=== PATIENT | male | born 1975 | race Caucasian/White ===

== ENCOUNTER → 2017-04-11 | Outpatient (CLI) | payer OTHER ==
[2017-04-11 09:28] LABS: BASO % 1 % (0-3); EOS % 2 % (0-3); HEMATOCRIT 43.6 % (39.0-53.0); LYMPH # 1.5 x10^3/uL (1.0-4.8); LYMPH % 28 % (24-48); MEAN CORPUSCULAR HEMOGLOBIN 31 pg (25-35); MEAN CORPUSCULAR HGB CONC 35 g/dL (31-37); MEAN CORPUSCULAR VOLUME 89 fL (79-100); MONO % 11 % (0-9); NEUT % 58 % (31-73); PLATELET COUNT 226 x10^3/uL (140-400); RED CELL DISTRIBUTION WIDTH 13.6 % (11.5-14.5); WHITE BLOOD COUNT 5.3 x10^3/uL (4.0-11.0)
[2017-04-11 09:29] LABS: BILIRUBIN,URINE NEGATIVE (NEG); GLUCOSE,URINE NEGATIVE (NEG); NITRITE,URINE NEGATIVE (NEG); PROTEIN,URINE NEGATIVE (NEG-TRACE)
[2017-04-11 09:46] LABS: ALBUMIN 3.6 g/dL (3.4-5.0); ALBUMIN/GLOBULIN RATIO 1.1 (1.0-1.7); CALCIUM 8.7 mg/dL (8.5-10.1); CREATININE 0.9 mg/dL (0.7-1.3); GFR 92.5; POTASSIUM 3.7 mmol/L (3.5-5.1); TOTAL BILIRUBIN 0.7 mg/dL (0.2-1.0); TOTAL PROTEIN 6.8 g/dL (6.4-8.2)
[2017-04-11 09:48] LABS: BACTERIA,URINE 0 /HPF (0-FEW); RBC,URINE 0 /HPF (0-2); WBC,URINE 0 /HPF (0-4)
[2017-04-11 09:50] LABS: CHOLESTEROL/HDL RATIO 5.6
== END | disposition home or self-care (01) ==
LOC: LAB 08:24
PROVIDERS: ATTEND Family Medicine
DX: Z00.00 Encounter for general adult medical examination without abnormal findings (principal)
CPT/HCPCS: 36415; 80053; 80061; 81001; 83036; 84443; 85025

== ENCOUNTER → 2018-04-18 | Outpatient (CLI) | payer OTHER ==
[2018-04-18 11:16] LABS: BASO % 1 % (0-3); EOS # 0.1 x10^3/uL (0.0-0.7); EOS % 2 % (0-3); HEMATOCRIT 45.5 % (39.0-53.0); HEMOGLOBIN 15.8 g/dL (13.0-17.5); LYMPH # 1.8 x10^3/uL (1.0-4.8); LYMPH % 31 % (24-48); MEAN CORPUSCULAR HEMOGLOBIN 31 pg (25-35); MEAN CORPUSCULAR HGB CONC 35 g/dL (31-37); MEAN CORPUSCULAR VOLUME 89 fL (79-100); MONO # 0.7 x10^3/uL (0.0-1.1); MONO % 12 % (0-9); NEUT # 3.1 x10^3uL (1.8-7.7); NEUT % 55 % (31-73); PLATELET COUNT 264 x10^3/uL (140-400); WHITE BLOOD COUNT 5.7 x10^3/uL (4.0-11.0)
[2018-04-18 11:26] LABS: ALBUMIN 3.7 g/dL (3.4-5.0); CALCIUM 8.8 mg/dL (8.5-10.1); CHOLESTEROL/HDL RATIO 5.5; GFR 81.6; POTASSIUM 3.3 mmol/L (3.5-5.1); TOTAL BILIRUBIN 0.7 mg/dL (0.2-1.0); TOTAL PROTEIN 7.4 g/dL (6.4-8.2)
[2018-04-18 19:16] LABS: HEMOGLOBIN A1C 5.1 % (4.8-5.6)
== END | disposition home or self-care (01) ==
LOC: LAB 10:41
PROVIDERS: ATTEND Family Medicine
DX: Z00.00 Encounter for general adult medical examination without abnormal findings (principal)
CPT/HCPCS: 36415; 80053; 80061; 83036; 84443; 85025

== ENCOUNTER → 2018-06-09 | Outpatient (CLI) | payer OTHER ==
[2018-06-09 13:57] LABS: ALBUMIN 3.8 g/dL (3.4-5.0); ALBUMIN/GLOBULIN RATIO 1.1 (1.0-1.7); CREATININE 0.9 mg/dL (0.7-1.3); DIRECT BILIRUBIN 0.1 mg/dL (0.0-0.2); GFR 91.7; POTASSIUM 3.4 mmol/L (3.5-5.1); TOTAL BILIRUBIN 0.6 mg/dL (0.2-1.0); TOTAL PROTEIN 7.4 g/dL (6.4-8.2)
[2018-06-09 14:08] LABS: THYROID STIM HORMONE (TSH) 5.843 uIU/mL (0.358-3.74)
== END | disposition home or self-care (01) ==
LOC: LAB 11:00
PROVIDERS: ATTEND Family Medicine
DX: B35.1 Tinea unguium (principal); E87.6 Hypokalemia; R79.89 Other specified abnormal findings of blood chemistry
CPT/HCPCS: 36415; 80053; 80076; 84436; 84443; 84481

== ENCOUNTER → 2018-06-09 | Outpatient (CLI) | payer OTHER ==
[~2018-06-09] MED LIST: IOHEXOL 240 MG/ML 50ML VIAL. PO ONE; IOHEXOL 300 MG/ML 100ML VIAL. IV ONE; LAMISIL PO; LOSA1TAB22 PO; OXYC1TAB15 PO
--- NOTE | 2018-06-09 16:20 | RAD ---
CT ABD PELV W/ORAL IV CONTRAST Indication: INJ 75ML OMNI 300 NO PREV VENTRAL HERNIA Exposure: One or more of the following individualized dose reduction techniques were utilized for this examination: 1. Automated exposure control 2. Adjustment of the mA and/or kV according to patient size 3. Use of iterative reconstruction technique. Comparison: None are available. Contrast: Intravenous contrast was given. Oral contrast was given. FINDINGS: Lower thorax: Small left lower lobe subpleural nodule measures 4 mm. Another nodule in the lateral anterior lung base, image 13, measures 5 mm. There are additional reticulonodular markings in both lung bases. There appears to be some scarring in the right lung base with a surgical clip. Liver: Unremarkable Spleen: Unremarkable Pancreas: Unremarkable Adrenals: No evidence of mass. Kidneys: No obvious mass. Urinary tracts: No hydronephrosis. Gallbladder: Several small calculi Lymph nodes: Small mesenteric lymph nodes are identified, measuring up to 9 mm in short axis. Vessels: Aorta is nonaneurysmal. GI tract: Moderate retained stool in the colon. Fecalizaiton of content in the distal ileum. Mild dilatation of small bowel loops.Appendix is normal. Reproductive organs:No evidence of mass. Urinary bladder: Unremarkable. Peritoneum: No evidence of pneumoperitoneum. No free fluid. Abdominal wall: Small fat-containing anterior abdominal wall hernia. No bowel herniation. Spine: Transitional anatomy at the lumbosacral junction. Bones: No destructive process identified. External Soft Tissue: No acute findings. IMPRESSION: 1. Small pulmonary nodules, measuring up to 5 mm in diameter. As per Fleischner guidelines, no routine follow-up is necessary if low risk. If high risk, consider CT chest follow-up in 12 months. 2. Moderate retained stool in the colon. There is mild diffuse small bowel distention, with fecalization of distal small bowel contents. Findings could indicate mild small bowel obstruction versus slow bowel transit. 3. Mild mesenteric lymph node enlargement, nonspecific but could be reactive. 4. Cholelithiasis. 5. Irregular markings in both lung bases with a reticulonodular appearance, indeterminate, could be due to fibrosis or scarring. 6. I called Dr. Calvo's office at 4:10 PM on 06/09/2018 to communicate these findings. The phone forwarded to the answering service, who has paged the on-call physician with my callback number to communicate these findings. Electronically signed by: Ramos Hurd MD (06/09/2018 4:16 PM) [id number]
== END | disposition home or self-care (01) ==
LOC: CT 10:56
PROVIDERS: ATTEND Surgery
DX: K43.9 Ventral hernia without obstruction or gangrene (principal); K80.20 Calculus of gallbladder without cholecystitis without obstruction; R59.0 Localized enlarged lymph nodes; R91.8 Other nonspecific abnormal finding of lung field; I10 Essential (primary) hypertension
CPT/HCPCS: 74177; Q9966; Q9967

== ENCOUNTER 2018-07-05 05:56 | Observation (INO) | payer OTHER ==
[~2018-07-05] VITALS: Ht 188 cm; Wt 102.7 kg
[2018-07-05] VITALS (9 sets, daily range): BP systolic 111–123; BP diastolic 69–81
[~2018-07-05 05:56] MED LIST changes: -IOHEXOL 240 MG/ML 50ML VIAL. PO ONE; -IOHEXOL 300 MG/ML 100ML VIAL. IV ONE; -OXYC1TAB15 PO
[2018-07-05] MEDS: IV RINGERS,LACTATED 1000ML 1,000 ML IV SCH ×2 (06:35→09:52)
[2018-07-05] MEDS ORDERED: BUPIVAC MPF-EPI 0.5%-1:200000 30 ML VIAL. ONE (06:58)
[2018-07-05] MEDS ORDERED: BUPIVACAINE MPF 0.5% 30 ML VIAL. ONE (06:58)
[2018-07-05] MEDS ORDERED: PROCHLORPERAZINE 10 MG/2 ML VIAL. IV PRN (07:00)
[2018-07-05] MEDS ORDERED: ONDANSETRON PF 4 MG/2 ML VIAL. IV PRN ×2 (07:00→09:45)
[2018-07-05] MEDS ORDERED: fentaNYL PF VIAL 100 MCG/2 ML VIAL IV PRN ×2 (07:00)
[2018-07-05] MEDS ORDERED: LIDOCAINE 1% PF 2 ML VIAL. ID PRN (07:00)
[2018-07-05] MEDS ORDERED: MORPHINE SULFATE 4 MG/ML VIAL. IV PRN ×2 (07:00→09:45)
[2018-07-05] MEDS ORDERED: HYDROmorphone 2 MG/ML VIAL IV PRN (07:00)
[2018-07-05] MEDS ORDERED: ROCURONIUM 50 MG/5 ML VIAL. ONE (07:21)
[2018-07-05] MEDS ORDERED: fentaNYL PF VIAL 100 MCG/2 ML VIAL ONE (07:21)
[2018-07-05] MEDS ORDERED: MIDAZOLAM HCL/PF 2 MG/2 ML VIAL. ONE (07:22)
[2018-07-05] MEDS ORDERED: LIDOCAINE 2% PF 5 ML VIAL. ONE (07:22)
[2018-07-05] MEDS ORDERED: SEVOFLURANE > 120 MINUTES. IH ONE (07:22)
[2018-07-05] MEDS ORDERED: DEXAMETHASONE SOD PHOS 20 MG/5 ML VIAL. ONE (07:22)
[2018-07-05] MEDS ORDERED: ONDANSETRON PF 4 MG/2 ML VIAL. ONE (07:22)
[2018-07-05] MEDS ORDERED: PROPOFOL 20 ML IV ONE (07:22)
[2018-07-05] MEDS ORDERED: KETOROLAC 30 MG/ML INJ FOR OR. INJ ONE (07:39)
[2018-07-05] MEDS ORDERED: ePHEDrine PF IN SALINE 50 MG/5 ML DISP.SYRIN IV ONE (07:43)
--- NOTE | 2018-07-05 09:37 | PDOC4 ---
Operative Note Operative Note Operative Note: Preoperative Diagnosis: Ventral hernia Postoperative Diagnosis: Same Procedure: Ventral hernia repair with mesh Surgeon: Umesh Assistant Production Editor: Yisel PINO Anesthesia: Gen. EBL: 20 mL Specimen: None Drains: None Complications: None Indication: The patient is a 43-year-old male who is referred due to a ventral hernia. The hernia was located in the mid abdomen adjacent to the umbilicus at the site of a prior scar. He was offered surgical repair and I discussed the details with him including the use of mesh. The risks of surgery were also discussed which include bleeding, infection, visceral injury, bowel injury, hernia recurrence, anesthetic risk, pain, mesh reaction, potential need for additional surgery or procedure. He understands and would like to proceed. Description: The patient was taken the operating room and placed supine on the operating table. Gen. anesthesia was performed. The abdomen was prepped with ChloraPrep and draped with sterile towels, sheets, and an Ioban. A vertical incision was made at the site of the hernia. The incision extended superior and inferior to the umbilicus. Cautery dissection was carried down into the subcutaneous tissues. The hernia was readily identified and showed a small fascial defect adjacent to the umbilicus. The umbilical tissue was elevated off the fascia for better exposure. The fascia was cleared more widely to evaluate the entire central portion of his prior fascial closure. There proved to be another small hernia defect located a short ways inferiorly. The sac of the larger hernia was mobilized from the fascial tissue and reduced. A preperitoneal plane was developed circumferentially with primarily blunt dissection. We were able to continue this dissection to include the smaller hernia defect. A large Ventralex ST mesh was then placed in the preperitoneal plane that was developed deep to the fascia. The mesh provided full coverage of both hernia defects with good overlap. The mesh was sutured around its periphery to the fascia using interrupted 0 Prolene in a horizontal mattress fashion. Both hernia defects were then closed primarily over the mesh with 0 Prolene. The umbilicus was secured back to the fascia with 0 Vicryl. The subcutaneous tissues tissues closed with 3-0 Vicryl and the skin was approximated with 4-0 Monocryl. The patient tolerated the procedure well and was sent to the recovery room in stable condition. At the end of the case all counts were correct. SHANTI SANDOVAL MD Jul 05, 2018 09:37
[2018-07-05] MEDS ORDERED: oxyCODONE/APAP 5/325 1 TAB TABLET PO PRN (09:45)
[2018-07-05] MEDS ORDERED: 0.9 % SODIUM CHLORIDE 10 ML DISP.SYRIN. IV PRN (09:45)
[2018-07-05] MEDS ORDERED: KETOROLAC 30 MG/ML VIAL. IV PRN (09:45)
--- NOTE | 2018-07-05 10:28 | NUR ---
Patient arrived to the unit from PACU on a cot in which he transferred himself over to the bed by himself without complications. IV intact in his left wrist with fluids infusing. Glasses on patient and his hearing aide is in his left ear. Permanent upper dentures intact. No oxygen present. Vital signs stable. Dressing on the patients abdomen is dry/intact with an abdominal binder in place. Family at bedside. Will continue to monitor.
[2018-07-05] MEDS: LOSARTAN POTASSIUM 50 MG TABLET. PO SCH (11:26)
[2018-07-05] MEDS: hydroCHLOROthiazide 25 MG TABLET PO SCH (11:26)
[2018-07-05] MEDS: IV 1/2 NORMAL SALINE 1,000 ML IV SCH ×2 (11:28→19:29)
[2018-07-06 02:33] VITALS: BP 108/70
[2018-07-06 06:07] VITALS: BP 105/73
[2018-07-06] MEDS: oxyCODONE/APAP 5/325 1 TAB TABLET PO PRN ×2 (07:39→12:50)
[2018-07-06] MEDS: hydroCHLOROthiazide 25 MG TABLET PO SCH (08:30)
[2018-07-06] MEDS: LOSARTAN POTASSIUM 50 MG TABLET. PO SCH (08:30)
[2018-07-06 08:35] VITALS: BP 110/75
[2018-07-06 11:09] VITALS: BP 105/77
--- NOTE | 2018-07-06 13:26 | PDOC ---
SURGICAL PROGRESS NOTE Subjective pain managed ambulating tolerating diet Vital Signs Vital Signs Date Time Temp Pulse Resp B/P (MAP) Pulse Ox O2 Delivery O2 Flow Rate FiO2 07/06/18 12:50 Room Air 07/06/18 11:09 98.3 61 105/77 (86) 97 98.3 07/06/18 06:07 17 07/05/18 09:28 10 I&O Intake and Output 07/06/18 07:01 Intake Total 1950 ml Output Total 670 ml Balance 1280 ml IV Total 1950 ml Output Urine Total 650 ml Estimated Blood Loss 20 ml # Voids 2 General: Alert, Oriented X3, Cooperative, No acute distress Abdomen: Soft, Other Assessment/Plan s/p VIH repair DC home No lifting > 20 lbs, wear abdominal binder ORTEGA LOGAN COMPUTER SUPPORT ANALYST Jul 06, 2018 13:26
--- NOTE | 2018-07-06 13:27 | DISCH ---
DISCHARGE INSTRUCTIONS Condition on Discharge Condition on Discharge: Stable Activity After Discharge Activity Instructions for Disc: Walk in house Other activity instructions: ambulation only exercise ; gradually increase time and distance Bathing Instructions: Shower-keep dressing dry Lifting Instructions after Dis: No heavy lifting, No pulling or pushing Exercise Instruction after Dis: Progress as tolerated Driving Instructions after Dis: Do not drive Weight Bearing Status after Di: No restrictions Diet after Discharge Diet after Discharge: Regular Wound Incision Care Wound/Incision Care: Ice to area for comfort, Keep wound/cast CDI Other wound/incision instructi: wear abdominal binder until released by Dr. Calvo Wound Care Equipment: Dressings Checks after Discharge DC Comment: increase fruits, vegetables and fiber; attempt BM every 2-3 days Contacting the [facility] after DC Call your doctor for: Concerns you may have Follow-Up Follow Up With: call for a 2 week post op appt with Dr. Calvo at [phone] Treatment/Equipment after DC Adaptive Equipment Issued: None ORTEGA LOGAN APRN Jul 06, 2018 13:27
[2018-07-06] MEDS ORDERED: OXYC1TAB15 PO (13:28)
--- NOTE | 2018-07-06 13:56 | NUR ---
reviewed discharge instructions with Carlie (spouse) discussed pain medication and side effects, limitations to activities of daily living such as bathing, driving and transferring in bed to standing. the need to call for a week post op follow up appt with Dr. Calvo and incisional care and wearing abdominal binder. dismissed to home.
--- NOTE | 2018-07-11 13:02 | PDOC3 ---
Discharge Summary Visit Information Date of Admission: Jul 06, 2018 Date of Discharge: Jul 07, 2018 Admitting Diagnosis: ventral hernia Final Diagnosis ventral hernia Brief Hospital Course Allergies Allergies Coded Allergies Type Severity Reaction Last Updated Verified No Known Drug Allergies 07/05/18 No Brief Hospital Course Mr. Andre is a 43 old male who presented with ventral hernia and underwent Ventral hernia repair with mesh. Postoperatively tolerating diet, ambulating, and pain managed. Ready for discharge home Discharge Information Condition at Discharge: Stable Follow Up: Weeks (1) Disposition/Orders: D/C to Home Scheduled Losartan/Hydrochlorothiazide (Losartan-Hctz 100-25 Mg Tab) 1 Each Tablet, 1 TAB PO DAILY for hypertension, #30 Ref 5 (Reported) Entered as Reported by: SHEEBA RLODAN on 06/30/18 1440 Last Taken: Unknown Dose on 07/04/18 Last Action: Converted on 07/05/18945 by SHANTI SANDOVAL [Lamisil] , 250 MG PO DAILY for TOENAIL FUNGUS, (Reported) Entered as Reported by: SHEEBA ROLDAN on 06/30/18 1442 Last Taken: Unknown Dose on 07/04/18 Last Action: HELD on 07/05/1846 by SHANTI SANDOVAL Scheduled PRN Oxycodone/Apap 5-325 (Percocet 5-325 Mg Tablet ) 1 Each Tablet, 1 TAB PO PRN Q4HRS PRN for MILD PAIN, 1ST CHOICE, #30 Ref 0 Prescribed by: Verito Tierney on 07/06/18 1328 VERITO TIERNEY APRN Jul 11, 2018 13:02
== END 2018-07-06 14:17 | disposition home or self-care (01) ==
LOC: SURG 05:56 → 4 SOUTHEST 09:37
PROVIDERS: ADMIT Surgery; ATTEND Surgery
DX: K43.9 Ventral hernia without obstruction or gangrene (principal)
CPT/HCPCS: 49560; 49568; C1781; G0378; G0379; J0696; J1100; J1885; J2001; J2250; J2405; J2704; J3010; J7120; J3490

== ENCOUNTER → 2019-05-09 | Outpatient (CLI) | payer OTHER ==
[~2019-05-09] MED LIST changes: +OXYC1TAB15 PO
[2019-05-09 09:07] LABS: BASO % 1 % (0-3); EOS # 0.1 x10^3/uL (0.0-0.7); EOS % 1 % (0-3); HEMATOCRIT 45.7 % (39.0-53.0); HEMOGLOBIN 15.6 g/dL (13.0-17.5); LYMPH # 1.8 x10^3/uL (1.0-4.8); LYMPH % 31 % (24-48); MEAN CORPUSCULAR HEMOGLOBIN 30 pg (25-35); MEAN CORPUSCULAR HGB CONC 34 g/dL (31-37); MEAN CORPUSCULAR VOLUME 88 fL (79-100); MONO # 0.5 x10^3/uL (0.0-1.1); MONO % 9 % (0-9); NEUT # 3.3 x10^3/uL (1.8-7.7); NEUT % 58 % (31-73); PLATELET COUNT 269 x10^3/uL (140-400); RED BLOOD COUNT 5.18 x10^6/uL (4.30-5.70); RED CELL DISTRIBUTION WIDTH 13.2 % (11.5-14.5); WHITE BLOOD COUNT 5.7 x10^3/uL (4.0-11.0)
[2019-05-09 09:27] LABS: ALBUMIN 3.9 g/dL (3.4-5.0); ALBUMIN/GLOBULIN RATIO 1.2 (1.0-1.7); CALCIUM 8.8 mg/dL (8.5-10.1); GFR 81.2; POTASSIUM 3.5 mmol/L (3.5-5.1); TOTAL BILIRUBIN 0.6 mg/dL (0.2-1.0); TOTAL PROTEIN 7.2 g/dL (6.4-8.2)
[2019-05-09 09:32] LABS: CHOLESTEROL/HDL RATIO 6.1
[2019-05-09 20:07] LABS: THYROXINE 8.5 ug/dL (4.5-12.0)
[2019-05-10 00:07] LABS: HEMOGLOBIN A1C 5.2 % (4.8-5.6)
== END | disposition home or self-care (01) ==
LOC: LAB 08:22
PROVIDERS: ATTEND Family Medicine
DX: Z00.00 Encounter for general adult medical examination without abnormal findings (principal); R79.89 Other specified abnormal findings of blood chemistry
CPT/HCPCS: 36415; 80053; 80061; 83036; 84436; 84443; 84480; 85025